=== PATIENT | male | born 1995 | race Two or more races ===

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

== ENCOUNTER 2017-07-14 18:38 | Emergency (ER) | payer SELFPAY ==
[2017-07-14] MEDS ORDERED: 0.9 % SODIUM CHLORIDE 1,000 ML BAG IV ONE (19:24)
[2017-07-14] MEDS ORDERED: KETOROLAC 30 MG/ML VIAL IVP ONE (19:24)
--- NOTE | 2017-07-14 19:28 | Emergency Department Record ---
History of Present Illness - General Chief Complaint: Headache Migraine Stated Complaint: HEADACHE,CHEST HURTS WHEN INHALING Time Seen by Provider: 07/14/17 19:19 Source: Patient Mode of Arrival: Ambulatory Limitations: No limitations - History of Present Illness Initial Comments: 21 yo male presents with cough, chest pain, productive cough and headache. The symptoms started last night. He noted green sputum and pain with coughing, He has had a fever as well. He has a frontal headache. Nausea but no vomiting. He did not have a FLU shot. He is a smoker. MD Complaint: Headache, Other (cough and chest pain ) Onset/Timin -: Days(s) Onset Description: Awoke with symptoms Location: Frontal Severity scale (1-10): 6 Quality: Aching, Sharp Consistency: Constant Improves With: Nothing Worsens With: Light, Movement of head/neck Associated Symptoms: Photophobia Other Symptoms: Cough Treatments Prior to Arrival: None - Related Data Previous Rx's Medication Instructions Recorded Oseltamivir Phosphate [Tamiflu] 75 mg PO BID #10 capsule 07/14/17 Allergies Allergy/AdvReac Type Severity Reaction Status Date / Time No Known Drug Allergies Allergy Verified 09/18/15 15:25 Travel Screening - Travel/Exposure Within Last 30 Days Have you traveled within the last 30 days?: No - Travel Symptoms Symptom Screening: None Review of Systems Constitutional: Reports: Fever. Denies: Chills, Malaise, Weakness, Weight change Eyes: Reports: Photophobia. Denies: Eye discharge, Eye pain, Vision change ENT: Reports: Congestion. Denies: Throat pain Respiratory: Reports: Cough, Other (green sputum). Denies: Dyspnea, Hemoptysis , Stridor, Wheezes Cardiovascular: Denies: Chest pain, Syncope Endocrine: Denies: Fatigue, Polydipsia, Polyuria Gastrointestinal: Reports: Nausea. Denies: Abdominal pain, Diarrhea, Vomiting Genitourinary: Denies: Dysuria, Frequency, Hematuria Musculoskeletal: Denies: Arthralgia, Back pain, Joint swelling, Myalgia Skin: Denies: Bruising, Change in color, Rash Neurological: Denies: Confusion, Headache, Numbness, Weakness Psychiatric: Denies: Anxiety Hematological/Lymphatic: Denies: Blood Clots, Easy bleeding, Easy bruising, Swollen glands Past Medical History - SOCIAL HISTORY Smoking Status: Former smoker - RESPIRATORY Hx Respiratory Disorders: No - CARDIOVASCULAR Hx Cardio Disorders: No - NEURO Hx Neuro Disorders: No - GI Hx GI Disorders: No - Hx Genitourinary Disorders: No - ENDOCRINE Hx Endocrine Disorders: No - MUSCULOSKELETAL Hx Musculoskeletal Disorders: No - PSYCH Hx Psych Problems: Yes Comment:: adhd - HEMATOLOGY/ONCOLOGY Hx Hematology/Oncology Disorders: No Family Medical History Any Significant Family History?: Yes Hx Diabetes: Grandparents Hx Resp Disorders: Grandparents Physical Exam - General General Appearance: Alert, Oriented x3, Cooperative, No acute distress Limitations: No limitations - Head Head exam: Normal inspection - Eye Eye exam: Normal appearance, PERRL. negative: Conjunctival injection, Periorbital swelling, Scleral icterus - ENT ENT exam: Normal exam, Mucous membranes moist, Normal orophraynx, TM's normal bilaterally Ear exam: Normal external inspection Nasal Exam: Normal inspection Mouth exam: Normal external inspection, Tongue normal Teeth exam: Normal inspection. negative: Dental caries Throat exam: Normal inspection. negative: Tonsillar erythema, Tonsillomegaly, Tonsillar exudate, R peritonsillar mass, L peritonsillar mass - Neck Neck exam: Normal inspection, Full ROM. negative: Tenderness - Respiratory Respiratory exam: Normal lung sounds bilaterally. negative: Respiratory distress, Rhonchi, Stridor, Wheezes - Cardiovascular Cardiovascular Exam: Regular rate, Normal rhythm, Normal heart sounds - GI/Abdominal GI/Abdominal exam: Soft. negative: Tenderness - Rectal Rectal exam: Deferred - exam: Deferred - Extremities Extremities exam: Normal inspection, Full ROM, Normal capillary refill. negative: Tenderness - Back Back exam: Reports: Normal inspection, Full ROM. Denies: Muscle spasm, Rash noted, Tenderness - Neurological Neurological exam: Alert, Normal gait, Oriented X3 - Psychiatric Psychiatric exam: Normal affect, Normal mood - Skin Skin exam: Dry, Intact, Normal color, Warm Course Vital Signs 07/14/17 19:13 Temperature 100.9 F H Pulse Rate [ 90 Pulse Ox Probe] Respiratory 18 Rate Blood Pressure 133/85 [Left Arm] Pulse Ox 97 - Reevaluation(s) Reevaluation #1: 07/14/17 20:17 The labs were reviewed He is influenza positive The CBC and BMP are unremarkable The CXR was reviewed. No acute process. Medical Decision Making - Lab Data Result diagrams: 07/14/17 19:40 07/14/17 19:40 Disposition Disposition: Discharge Clinical Impression: Influenza Disposition: Home, Self-Care Condition: (1) Good Instructions: Influenza (ED) Additional Instructions: Rest and stay well hydrated You are contagious. Cover with coughing and wash hands Prescriptions: Oseltamivir Phosphate [Tamiflu] 75 mg PO BID #10 capsule Forms: Patient Portal Access Time of Disposition: 20:19 Quality - Quality Measures Quality Measures: N/A - Blood Pressure Screening Does Patient Have Any of the Following: No Blood Pressure Classification: Pre-Hypertensive BP Reading Systolic Measurement: 133 Diastolic Measurement: 85 Screening for High Blood Pressure: < Pre-Hypertensive BP, F/U Documented > [ [id number]] Pre-Hypertensive Follow-up Interventions: Referral to alternative/primary care provider.
[2017-07-14 19:49] LABS: HEMATOCRIT 48.9 % (42.0-52.0); HEMOGLOBIN 17.5 gm/dl (14.0-18.0); MEAN CELL VOLUME 86.2 fl (81-97); MEAN CORPUSCULAR HEMOGLOBIN 30.9 pg (27-33); MEAN CORPUSCULAR HGB CONC 35.8 g/dl (32-36); MEAN PLATELET VOLUME 9.6 fl (7.4-10.4); PLATELET COUNT 226 K/uL (130-400); RED BLOOD COUNT 5.67 M/uL (4.40-5.70); RED CELL DISTRIBUTION WIDTH 12.4 % (11.5-14.5); WHITE BLOOD COUNT W/O DIFF 10.2 K/uL (4.2-12.2)
[2017-07-14 20:02] LABS: BLOOD UREA NITROGEN 11 mg/dL (6-20); CREATININE 0.8 mg/dL (0.7-1.2)
[2017-07-14 20:03] LABS: INFLUENZA A POSITIVE (NEGATIVE); INFLUENZA B NEGATIVE (NEGATIVE)
[2017-07-14 20:04] LABS: GLUCOSE,RANDOM 91 mg/dL (74-109)
[2017-07-14] MEDS ORDERED: OSTELTAMIVIR 75 MG CAP PO ONE (20:17)
[2017-07-14] MEDS ORDERED: ACETAMINOPHEN 500 MG TABLET PO ONE (20:19)
--- NOTE | 2017-07-15 13:28 | RADIOLOGY REPORT ---
EXAM: CHEST, TWO VIEWS HISTORY: DIFFICULTY IN BREATHING. TECHNIQUE: Frontal and lateral views of the chest were performed. FINDINGS: The heart size is normal. The lung soni are clear. No infiltrate or pleural effusion. The osseous structures are normal. IMPRESSION: NEGATIVE CHEST EXAMINATION. JOB NUMBER: [id number] MTDD
== END 2017-07-14 21:35 | disposition home or self-care (01) ==
LOC: ER 18:38
DX: J10.1 Influenza due to other identified influenza virus with other respiratory manifestations (principal); R07.9 Chest pain, unspecified; R06.00 Dyspnea, unspecified; R51 Headache; R11.0 Nausea; F17.210 Nicotine dependence, cigarettes, uncomplicated
CPT/HCPCS: 71020; 80048; 85027; 87400; 96374; 99284; J1885; J7030

== ENCOUNTER 2017-12-01 11:47 | Emergency (ER) | payer SELFPAY ==
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
[2017-12-01] MEDS ORDERED: IBUPROFEN 400 MG TABLET PO ONE (12:18)
--- NOTE | 2017-12-03 14:39 | RADIOLOGY REPORT ---
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 TECHNIQUE: Four views of the right wrist were obtained. Comparison: None. Encounter: Initial. FINDINGS: The right wrist appears intact with no definite fracture or dislocation identified. There may be some mild soft tissue swelling present. If wrist symptoms persist, a follow-up study in 10-14 days time would be suggested to exclude a currently radiographically occult fracture. IMPRESSION: THERE IS PROBABLY SOME MILD SOFT TISSUE SWELLING. NO FRACTURE OF THE RIGHT WRIST IDENTIFIED. JOB NUMBER: [id number] MTDD
== END 2017-12-01 13:17 | disposition home or self-care (01) ==
LOC: ER 11:47
DX: M25.531 Pain in right wrist (principal); F17.210 Nicotine dependence, cigarettes, uncomplicated
CPT/HCPCS: 99283